=== PATIENT | female | born 1995 | race Caucasian/White ===

== ENCOUNTER 2023-07-03 09:25 | Outpatient (REF) | payer OTHER, SELFPAY ==
[2023-07-03 11:11] LABS: C Reactive Protein 1.01 mg/dL (< or = 0.50)
== END 2023-07-03 09:26 | disposition home or self-care (01) ==
LOC: HO.LAB 09:25
PROVIDERS: PCP Student in an Organized Health Care Education/Training Program; Visit Provider Internal Medicine
DX: R19.4 Change in bowel habit (principal); K58.9 Irritable bowel syndrome, unspecified
CPT/HCPCS: 36415; 86140

== ENCOUNTER 2023-07-03 09:25 | Outpatient (AMB) | payer OTHER, SELFPAY ==
--- NOTE | 2023-07-03 09:32 | A.OFFVIS_ITS ---
Vital Signs 07/03/23 09:33 Height 5 ft 5 in Weight 167 lb 8.821 oz BMI 27.9 BP 161/77 H Blood Pressure Location Lt brachial Position Sitting Pulse 75 Intake Visit Reasons: melena Intake Note: Vicky presents in the office as a new patient for melena. CC: She states that her PCP suspected it to be blood in stool - he said orange is not common but that is what he assumed and referred her here. She gets cramping in the stomach at times and it varies. She states she has times that it gets bad to where she wants to curl in a ball. She states that she gets a mixture between constipation for 3 days and then she will have diarrhea. Allergies No Known Allergies Allergy (Verified 07/03/23 09:33) HPI Comments Details: This is a 27 y.o F who was referred to the office for change in color of stool . Pt reports fluctuating bowel habits for a year where she goes from constipation and not being able to pass a stool for 3 days to diarrhea with mucus. When having diarrhea has 5-6/day. Sometimes has urgency. Has lower abd cramping and LLQ cramping which gets better with evacuation. A few days she saw bright yellow/orange liquid stool for which she called her PCP. PCP was unsure if this represented blood in her stool and therefore sent her to GI. No melena or hematochezia. No unintentional weight loss. No changes in diet. Works at a [employer]. Labs reviewed from PCP office - no anemia, normal renal and liver function. celiac neg. thyroid normal. Pt brought picture of the stool which appears normal. [facility] Family History (Updated 07/03/23 @ 09:34 by JANETTE Veloz) Paternal Grandfather Stomach cancer Review of Systems Const All systems reviewed & are unremarkable except as noted in HPI and below Physical Exam Vital Signs: Last Vital Signs Pulse 75 07/03/23 09:33 BP 161/77 H 07/03/23 09:33 BMI result Body Mass Index 27.9 NAD Healthy appearing No overt resp distress abd nondistended A.Ox3 norm gait Assessment & Plan Assessment & Plan (1) Change in bowel habit: Code(s): R19.4 - Change in bowel habit Category: Medical (2) Irritable bowel syndrome: Code(s): K58.9 - Irritable bowel syndrome without diarrhea Category: Medical Plan Reassured the pt that stool is normal appearing based on the picture. Common to have light/yellow colored stools during diarrhea due to rapid transit. In terms of fluctuating BMs most consistent with IBS however will r/o IBD and parasitic infection. Labs ordered. In the meantime, pt encouraged to incorporate fiber in her diet. Take senna/miralax for constipation. Avoid imodium - fiber should help wiht consistency of stool but if abs needed, can take 1mg PO 1-2 times a day. Follow up if labs abnormal otherwise PRN. Orders: Orders C Reactive Protein Today R19.4 - Change in bowel habit Calprotectin, Fecal Today R19.4 - Change in bowel habit Ova and Parasite Today R19.4 - Change in bowel habit Medications: New loperamide (Imodium A-D) 1 mg (1/2 x 2 mg) PO TID PRN 90 tabs 0RF loose stool Coding Level of Care Code New Pt Level 4 (65267) Diagnoses Change in bowel habit R19.4 Irritable bowel syndrome K58.9
[2023-07-03 09:33] VITALS: BP 161/77; PULSE 75; BMI 27.9
== END 2023-07-03 10:33 | disposition home or self-care (01) ==
PROVIDERS: PCP Physician Assistant Medical; Visit Provider Internal Medicine
DX: R19.4 Change in bowel habit (principal); K58.9 Irritable bowel syndrome, unspecified
CPT/HCPCS: 99204